=== PATIENT | female | born 1940 | race Caucasian/White ===

== ENCOUNTER → 2016-04-17 | Outpatient (CLI) | payer MEDICARE, OTHER | LOC: RAD 13:01 | PROVIDERS: ATTEND Internal Medicine Endocrinology, Diabetes & Metabolism | DX: E04.2 Nontoxic multinodular goiter (principal) | CPT/HCPCS: 70491; 82565 ==

== ENCOUNTER → 2018-01-25 | Outpatient (CLI) | payer MEDICARE, OTHER | LOC: OD 07:50 | PROVIDERS: ATTEND Otolaryngology | DX: E04.2 Nontoxic multinodular goiter (principal); Z53.8 Procedure and treatment not carried out for other reasons ==

== ENCOUNTER 2018-01-26 07:01 | Observation (INO) | payer MEDICARE, OTHER ==
[2018-01-25 08:46] LABS: ALBUMIN 4.1 g/dL (3.5-5.0); PHOSPHORUS 3.8 mg/dL (2.5-4.5)
[2018-01-25 10:52] LABS: HEMATOCRIT 38.9 % (36.0-47.0); HEMOGLOBIN 13.3 g/dL (12.0-15.5); MEAN CORPUSCULAR HEMOGLOBIN 32.4 pg (27.0-33.4); MEAN CORPUSCULAR HGB CONC 34.1 g/dL (32.0-36.0); MEAN CORPUSCULAR VOLUME 95 fl (80-97); PLATELET COUNT 257 10^3/uL (150-450); RED CELL DISTRIBUTION WIDTH 13.7 % (11.5-14.0); WHITE BLOOD COUNT 6.4 10^3/uL (4.0-10.5)
[2018-01-25 11:16] LABS: ANION GAP 9 (5-19); BLOOD UREA NITROGEN 18 mg/dL (7-20); CALCIUM 9.4 mg/dL (8.4-10.2); CARBON DIOXIDE 31 mmol/L (22-30); CHLORIDE 107 mmol/L (98-107); GLUCOSE 87 mg/dL (75-110); POTASSIUM 4.6 mmol/L (3.6-5.0); SODIUM 146.6 mmol/L (137-145)
[2018-01-25 11:35] LABS: ALBUMIN 4.2 g/dL (3.5-5.0); PHOSPHORUS 3.7 mg/dL (2.5-4.5)
--- NOTE | 2018-01-25 13:10 | EKG REPORT ---
SEVERITY:- NORMAL ECG - SINUS RHYTHM : Confirmed by: Brandon Samuel MD 25-Jan-2018 13:10:06
[~2018-01-26 07:01] MED LIST: LIDOCAINE 0.5% INJ-PF (5 MG/ML) 50 ML SDV SUBCUT PRN; RINGERS SOLUTION,LACTATED 1,000 ML IV PRN
[2018-01-26] MEDS ORDERED: CEFAZOLIN 1 GM/D5W RTU 1 GM/50 ML RTUPB IV ONE (07:46)
[2018-01-26] MEDS ORDERED: MIDAZOLAM 2 MG/2 ML INJ ONE (10:03)
[2018-01-26] MEDS ORDERED: FENTANYL CITRATE INJ/PF 100 MCG/2 ML AMPUL ONE ×2 (10:03→10:06)
[2018-01-26] MEDS ORDERED: ACETAMINOPHEN 1,000 MG/100 ML RTUPB IV ONE (10:04)
[2018-01-26] MEDS ORDERED: HYDROMORPHONE HCL INJ/PF 2 MG/ML AMPULE ONE (10:04)
[2018-01-26] MEDS ORDERED: PROPOFOL INJ 200 MG/20 ML VIAL IV ONE (10:04)
[2018-01-26] MEDS ORDERED: LIDOCAINE 2%/EPINEPHRINE INJ 1.7 ML CARTRIDGE ONE (10:19)
[2018-01-26] MEDS ORDERED: EPHEDRINE SULFATE INJ 50 MG/1 ML AMPULE ONE (10:44)
[2018-01-26] MEDS ORDERED: DIPHENHYDRAMINE HCL 50 MG/ML VIAL IV PRN (11:19)
[2018-01-26] MEDS ORDERED: MORPHINE SULFATE 10 MG/ML INJ IV PRN ×2 (11:19→14:26)
[2018-01-26] MEDS ORDERED: FENTANYL CITRATE INJ/PF 100 MCG/2 ML AMPUL IV PRN ×3 (11:19)
[2018-01-26] MEDS ORDERED: PROMETHAZINE HCL INJ 25 MG/1 ML VIAL IV PRN ×3 (11:19→14:26)
[2018-01-26] MEDS ORDERED: MEPERIDINE HCL/PF INJ 25 MG/1 ML DISP.SYRIN IV PRN (11:19)
[2018-01-26] MEDS ORDERED: OXYMETAZOLINE HCL 0.05% NASAL SPRAY 15 ML BOTTLE NASL PRN (12:44)
[2018-01-26] MEDS ORDERED: ONDANSETRON HCL INJ/PF 4 MG/2 ML SDV IV PRN (14:26)
[2018-01-26] MEDS ORDERED: DEXAMETHASONE SOD PHOSPHATE INJ 4 MG/1 ML VIAL ONE (16:03)
[2018-01-26] MEDS ORDERED: ONDANSETRON HCL INJ/PF 4 MG/2 ML SDV ONE (16:03)
[2018-01-26] MEDS ORDERED: SUCCINYLCHOLINE CHLORIDE INJ 200 MG/10 ML VIAL ONE (16:03)
[2018-01-26] MEDS ORDERED: LIDOCAINE 2% INJ-PF (20 MG/ML) 2 ML AMPUL ONE (16:03)
[2018-01-26] MEDS ORDERED: ROCURONIUM BROMIDE INJ 50 MG/5 ML VIAL IV ONE (16:03)
[2018-01-26 18:30] LABS: ALBUMIN 3.7 g/dL (3.5-5.0); CALCIUM 8.6 mg/dL (8.4-10.2); PHOSPHORUS 3.7 mg/dL (2.5-4.5)
[2018-01-26] MEDS: HYDROCODONE/ACETAMINOPHEN 5-325 MG TABLET PO PRN (22:02)
[2018-01-26] MEDS: RINGERS SOLUTION,LACTATED 1,000 ML IV PRN (23:23)
[2018-01-27] MEDS: HYDROCODONE/ACETAMINOPHEN 5-325 MG TABLET PO PRN (08:06)
[2018-01-27] MEDS: RINGERS SOLUTION,LACTATED 1,000 ML IV PRN (09:03)
[2018-01-27 10:08] LABS: CALCIUM 8.2 mg/dL (8.4-10.2); PHOSPHORUS 3.8 mg/dL (2.5-4.5)
[2018-01-27] MEDS ORDERED: PROMETHAZINE HCL INJ 25 MG/1 ML VIAL IV PRN (15:00)
[2018-01-27] MEDS ORDERED: ONDANSETRON HCL INJ/PF 4 MG/2 ML SDV IV PRN (15:00)
[2018-01-27 16:07] LABS: ALBUMIN 3.5 g/dL (3.5-5.0); CALCIUM 8.1 mg/dL (8.4-10.2); PHOSPHORUS 4.3 mg/dL (2.5-4.5)
[2018-01-27] MEDS ORDERED: CALCIUM CARBONATE 250 MG/VITAMIN D3 125 UNIT TABLET PO SCH (17:00)
[2018-01-27] MEDS ORDERED: CALCITRIOL 0.25 MCG CAPSULE PO ONE ×2 (19:00→22:00)
[2018-01-27] MEDS: LIOTHYRONINE SODIUM 25 MCG TABLET PO SCH (19:00)
[2018-01-27] MEDS: CALCIUM CARBONATE 250 MG/VITAMIN D3 125 UNIT TABLET PO SCH (21:29)
[2018-01-28] MEDS: HYDROCODONE/ACETAMINOPHEN 5-325 MG TABLET PO PRN (06:13)
[2018-01-28] MEDS: CALCIUM CARBONATE 250 MG/VITAMIN D3 125 UNIT TABLET PO SCH ×3 (06:14→15:08)
[2018-01-28 06:42] LABS: ALBUMIN 3.4 g/dL (3.5-5.0); CALCIUM 8.2 mg/dL (8.4-10.2); PHOSPHORUS 4.1 mg/dL (2.5-4.5)
[2018-01-28] MEDS ORDERED: CALCITRIOL 0.25 MCG CAPSULE PO SCH ×2 (07:00→11:00)
[2018-01-28] MEDS ORDERED: MAGNESIUM OXIDE 400 MG TABLET PO SCH ×2 (10:00→10:15)
[2018-01-28 13:59] LABS: ALBUMIN 3.8 g/dL (3.5-5.0)
[2018-01-28 14:01] LABS: PHOSPHORUS 6.2 mg/dL (2.5-4.5)
[2018-01-28] MEDS: LIOTHYRONINE SODIUM 25 MCG TABLET PO SCH (17:37)
[2018-01-28 17:48] VITALS: BP 119/56
--- NOTE | 2018-01-31 09:16 | OPERATIVE REPORT E ---
Operative Report NAME: ELVIN TINOCO : 1940 AGE: 77Y DATE OF SURGERY: 01/26/2018 ROOM: 405 PREOPERATIVE DIAGNOSIS: Multinodular goiter. POSTOPERATIVE DIAGNOSIS: Multinodular goiter. OPERATIONS PERFORMED: 1. Total thyroidectomy. 2. Intraoperative noninvasive nerve monitoring (NIM). SURGEON: DENICE BUSCH D.O. ANESTHESIA: General endotracheal tube. ANESTHESIA STAFF: Aracely AVITIA ASSISTING SURGEON: PRASANTH MCCLURE M.D. IV FLUIDS: 1000 mL. ESTIMATED BLOOD LOSS: 25 mL. URINE OUTPUT: 100 mL. COMPLICATIONS: None. DRAINS: One Berlin drain. SPECIMENS: 1. Total thyroid gland specimen with the left lobe measuring greater than 8 x 4 x 4 cm and the right thyroid lobe measuring greater than 6 x 3 x 3 cm. 2. Left superior parathyroid gland concerning for a parathyroid adenoma, which was removed during the case for frozen and permanent pathology evaluation. The specimen was concerning for a parathyroid adenoma and intraoperative frozen section evaluation was without definitive parathyroid adenoma, findings being noted by the pathologist. FINDINGS: 1. Left and right thyroid lobes as noted above. 2. Left superior parathyroid gland concerning for an adenoma, as noted above. 3. Two right parathyroid gland prospects were identified and preserved. 4. Bilateral recurrent laryngeal nerves were identified and preserved and were with appropriate stimulation at 1 milliamp during and at the end of the case. 5. There was no concerning lymphadenopathy noted. INDICATIONS: This is a 77-year-old white female who was seen and evaluated in the [facility] office. The patient had been referred for a significantly enlarged multinodular goiter, left greater than right. The patient had also undergone fine needle aspiration biopsy with benign findings. The patient has noted some compressive symptoms over the years, which have been more notable over this past year. After extensive discussion with the patient, recommendation and plan was for total thyroidectomy followed by hospitalization, which the patient voiced an understanding of and agreed with. The procedure and all of its risks and complications were all discussed in detail. The patient voiced an understanding of the described surgical plan, agreed to proceed, and consent was obtained. PROCEDURE: The patient was taken to the main operating room and was placed on the operating room table in the supine position. Appropriate monitors were placed. Using mask and IV access, general anesthesia was induced. The patient was transorally intubated with a NIM endotracheal tube without difficulty. The patient was then positioned and prepped for thyroid surgery. There was a planned surgical incision that was marked followed by infiltration with local anesthetic with epinephrine. The NIM monitoring system was set up and tested appropriately prior to beginning the case. The patient was then prepped and draped in the usual fashion for thyroid surgery. The skin was sharply incised down through the level of the subcutaneous and platysmal layers. Flaps were elevated in a subplatysmal plane. The strap muscles were divided in the midline and the left thyroid lobe was exposed after strap muscles were retracted laterally. Superior and inferior thyroid pole vasculature was clearly identified and divided with the harmonic handpiece and bipolar electrocautery. During the dissection, the left superior parathyroid gland prospect was concerning/suspicious for a parathyroid adenoma. The preoperative intact PTH values were also 113 and 99. The left recurrent laryngeal nerve was clearly identified and preserved and was with appropriate stimulation at 1 milliamp. The gland was released from the area of buried ligament and brought onto the anterior tracheal wall. The isthmus was divided with the harmonic handpiece and the left lobe was passed off for permanent pathology evaluation. Attention was turned to the right side, which was addressed in a very similar fashion as the left. Superior and inferior thyroid pole vasculature was again divided with the harmonic handpiece and bipolar electrocautery. During the dissection on the right, the superior and inferior parathyroid gland prospects were identified and preserved. The right recurrent laryngeal nerve was also clearly identified and was with appropriate stimulation at 1 milliamp. The thyroid lobe was mobilized and released from buried ligament and was then cleared from the anterior tracheal wall. It was also passed off for a permanent pathology evaluation. The suspicious left superior parathyroid gland was removed and a full length biopsy piece was sent for a permanent pathology evaluation with findings as noted above. There was an intraoperative fat intact PTH assay that was obtained greater than 10 minutes after the left superior parathyroid gland prospect was removed. This value came back at 10. There was intraoperative consultation that took place and a decision was made to leave the left superior parathyroid gland prospect out and it was sent for permanent pathology evaluation due to the concern for a parathyroid adenoma. The wound beds were thoroughly irrigated and suctioned and bipolar electrocautery was used to provide additional and adequate hemostasis. Once complete, a piece of Surgicel approximately 2 x 2 cm in size was placed over each recurrent laryngeal nerve area. At this point, a 0.25 inch Berlin drain was divided down the middle with one leg placed in each wound bed and the drain was then brought out through the midline. The strap muscles were reapproximated in the midline with 5-0 Vicryl suture. The platysma was reapproximated with 5-0 Vicryl suture. The subcutaneous and deep dermal layers were reapproximated with 5-0 Monocryl suture. This suture was used to also perform a continuous deep dermal suture. The skin margins were next cleaned and dried followed by placement of Mastisol and Steri-Strips and a Fluffs pressure dressing overlying the Ramiro drain. The Berlin drain was secured to the skin level with a Vicryl suture. There were two 5-0 Monocryl rescue sutures that were placed and secured with Steri-Strips. At this point, the patient was returned to the anesthesia staff and was allowed to emerge from general anesthesia. The patient was extubated in the main operating room and was then transported to the post-anesthesia recovery unit in stable condition. There were no complications. DICTATING PHYSICIAN: DENICE BUSCH D.O. [id number] PHY#: [id number] ID: [id number] JOB#: [id number] ACCT: [id number] cc:DENICE BUSCH D.O. >
== END 2018-01-28 18:15 | disposition home or self-care (01) ==
LOC: INTOOBSV 07:40 → INOR 07:40 → 4N 15:22
PROVIDERS: ADMIT Otolaryngology; ATTEND Otolaryngology
PROC: 0GBJ0ZZ Excision of Thyroid Gland Isthmus, Open Approach (ICD-10-PCS; 2018-01-26)
PROC: 0GTK0ZZ Resection of Thyroid Gland, Open Approach (ICD-10-PCS; principal; 2018-01-26 09:30)
PROC: 3E02340 Introduction of Influenza Vaccine into Muscle, Percutaneous Approach (ICD-10-PCS; 2018-01-28)
PROC: 0HB4XZX Excision of Neck Skin, External Approach, Diagnostic (ICD-10-PCS; 2018-01-28)
DX: E04.2 Nontoxic multinodular goiter (principal); D22.4 Melanocytic nevi of scalp and neck; Z23 Encounter for immunization
CPT/HCPCS: 93005; 36415 ×3; 82040 ×4; 82310 ×3; 83735 ×4; 84100 ×4; 85027; 80048; 83970 ×3; 88305 ×2; 88307 ×2; 88331 ×2; 90686; 93010; 60240; 11100; G0008; A9270 ×10; J2250; J3490 ×4; J0690; J1100; J3010; J1170; J0330; J2405 ×2; J7120 ×2; J2704; J0131; 320; 90471

== ENCOUNTER → 2018-02-08 | Outpatient (CLI) | payer MEDICARE, OTHER ==
[2018-02-08 15:09] LABS: ALBUMIN 4.3 g/dL (3.5-5.0); CALCIUM 10.2 mg/dL (8.4-10.2); PHOSPHORUS 4.5 mg/dL (2.5-4.5)
== END ==
LOC: OD 13:49
PROVIDERS: ATTEND Otolaryngology
DX: E89.0 Postprocedural hypothyroidism (principal)
CPT/HCPCS: 36415; 82040; 82310; 83735; 83970; 84100